=== PATIENT | female | born 2000 | race Caucasian/White ===

== ENCOUNTER 2018-05-10 20:33 | Emergency (ER) | payer BC ==
[~2018-05-10] VITALS: Ht 170.2 cm; Wt 84.1 kg
[2018-05-10 20:38] VITALS: Ht 170.2 cm; Wt 84.1 kg
[2018-05-10 22:07] LABS: HCG URINE NEGATIVE (NEGATIVE)
[2018-05-10 23:22] VITALS: BP 132/65
== END 2018-05-10 23:22 | disposition home or self-care (01) ==
LOC: D.ER 20:33
PROVIDERS: Family Medicine
DX: M54.2 Cervicalgia (principal); V43.52XA Car driver injured in collision with other type car in traffic accident, initial encounter; Y93.89 Activity, other specified; Y92.410 Unspecified street and highway as the place of occurrence of the external cause